=== PATIENT | female | born 1980 | race Caucasian/White ===

== ENCOUNTER 2018-10-10 22:52 | Emergency (ER) | payer MEDICAID, OTHER ==
[~2018-10-10] VITALS: Ht 170.2 cm; Wt 73.7 kg
[2018-10-10 22:57] VITALS: Ht 170.2 cm; Wt 73.7 kg
[2018-10-10] MEDS ORDERED: ONDANSETRON 4 MG INJ IV STA (23:16)
[2018-10-10] MEDS ORDERED: SOD CHLORIDE 0.9% 1,000 ML IV STA (23:16)
[2018-10-10] MEDS ORDERED: morphine 4 MG/ML VIAL IV STA (23:16)
[2018-10-11] MEDS ORDERED: CEPH-443 PO (02:12)
[2018-10-11] MEDS ORDERED: TRAM50TA2 PO (02:12)
--- NOTE | 2018-10-11 02:13 | ERD ---
ER Documentation Chief Complaint Chief Complaint upper AP radiating to R flank and back X 5 hrs HPI This is a 38-year-old female with upper abdominal pain rating to her flank and back for 5 hours. Pain is mild to moderate intensity associated nausea but no vomiting. No fevers or chills. No other current complaints. Patient has had some mild urgency and frequency of urination. Does have history of gallstones with states that this pain feels different than her gallstone pain. Normal bowel movements. No trauma. ROS All systems reviewed and are negative except as per history of present illness. Medications Home Meds Active Scripts Tramadol HCl (Tramadol HCl) 50 Mg Tablet, 50 MG PO Q4 PRN for PAIN, #20 TAB Prov:CHUCK DOSS Devin. 10/11/18 Cephalexin* (Keflex*) 500 Mg Capsule, 500 MG PO QID for 5 Days, CAP Prov:CHUCK DOSS S. 10/11/18 PMhx/Soc Medical and Surgical Hx: pt denies Surgical Hx History of Surgery: No Hx Neurological Disorder: No Hx Respiratory Disorders: No Hx Psychiatric Problems: No Hx Miscellaneous Medical Probl: Yes (gallstones) Hx Alcohol Use: No Hx Substance Use: No Hx Tobacco Use: No Smoking Status: Never smoker Physical Exam Vitals Vital Signs Date Temp Pulse Resp B/P (MAP) Pulse Ox O2 O2 Flow FiO2 Time Delivery Rate 10/10/18 98.0 16 143/86 100 Room Air 23:23 (105) 10/10/18 97.8 84 18 162/85 100 22:57 (110) Physical Exam Const: No acute distress Head: Atraumatic Eyes: Normal Conjunctiva ENT: Normal External Ears, Nose and Mouth. Neck: Full range of motion. No meningismus. Resp: Clear to auscultation bilaterally Cardio: Regular rate and rhythm, no murmurs Abd: Soft, non tender, non distended. Normal bowel sounds Skin: No petechiae or rashes Back: No midline or flank tenderness Ext: No cyanosis, or edema Neur: Awake and alert Psych: Normal Mood and Affect Result Diagram: 10/10/188 10/10/182328 Results 24 hrs Laboratory Tests Test 10/10/18 23:29 10/10/18 23:50 10/10/18 23:54 White Blood Count 8.4 10^3/ul Red Blood Count 4.58 10^6/ul Hemoglobin 13.2 g/dl Hematocrit 40.3 % Mean Corpuscular Volume 88.0 fl Mean Corpuscular Hemoglobin 28.8 pg Mean Corpuscular 32.8 g/dl Hemoglobin Concent Red Cell Distribution Width 12.2 % Platelet Count 224 10^3/UL Mean Platelet Volume 11.5 fl Immature Granulocytes % 0.400 % Neutrophils % 63.2 % Lymphocytes % 27.6 % Monocytes % 5.0 % Eosinophils % 3.4 % Basophils % 0.4 % Nucleated Red Blood Cells % 0.0 /100WBC Immature Granulocytes # 0.030 10^3/ul Neutrophils # 5.3 10^3/ul Lymphocytes # 2.3 10^3/ul Monocytes # 0.4 10^3/ul Eosinophils # 0.3 10^3/ul Basophils # 0.0 10^3/ul Nucleated Red Blood Cells # 0.0 10^3/ul Sodium Level 140 mmol/L Potassium Level 3.9 mmol/L Chloride Level 105 mmol/L Carbon Dioxide Level 23 mmol/L Anion Gap 12 Blood Urea Nitrogen 12 mg/dl Creatinine 0.75 mg/dl Est Glomerular Filtrat > 60 mL/min Rate mL/min Glucose Level 118 mg/dl Calcium Level 9.2 mg/dl Total Bilirubin 0.1 mg/dl Direct Bilirubin 0.00 mg/dl Indirect Bilirubin 0.1 mg/dl Aspartate Amino Transf (AST/SGOT) 23 IU/L Alanine 16 IU/L Aminotransferase (ALT/SGPT) Alkaline Phosphatase 88 IU/L Total Protein 8.5 g/dl Albumin 4.6 g/dl Globulin 3.90 g/dl Albumin/Globulin Ratio 1.17 Lipase 112 U/L Urine Color YELLOW Urine Clarity CLOUDY Urine pH 5.0 Urine Specific Tyler 1.026 Urine Ketones TRACE mg/dL Urine Nitrite NEGATIVE mg/dL Urine Bilirubin NEGATIVE mg/dL Urine Urobilinogen NEGATIVE mg/dL Urine Leukocyte Esterase TRACE Alivia/ul Urine Microscopic RBC > 182 /HPF Urine Microscopic WBC 26 /HPF Urine Mucus MANY /HPF Urine Hemoglobin 3+ mg/dL Urine Glucose NEGATIVE mg/dL Urine Total Protein 1+ mg/dl POC Beta HCG, Qualitative NEGATIVE Current Medications Medications Dose Sig/Shelly Start Time Status Last (Trade) Ordered Route PRN Stop Time Admin Dose Reason Admin Sodium 1,000 ml @ Q1H STAT 10/10/18 DC 10/10/18 Chloride 1,000 mls/hr IV 23:16 10/11/18 23:25 00:15 Morphine 4 mg ONCE STAT 10/10/18 DC 10/10/18 Sulfate IV 23:16 10/10/18 23:35 (morphine) 23:17 Ondansetron 4 mg ONCE STAT 10/10/18 DC 10/10/18 HCl (Zofran IV 23:16 10/10/18 23:35 Inj) 23:17 Procedures/MDM Medical decision making: Patient's gastrointestinal symptoms have stabilized while in the department. No evidence of severe dehydration, sepsis, or surgical abdomen. Extensive discussion with family and patient that occult disease cannot be ruled out. 8 hour recheck for repeat abdominal exam is planned. Patient does have evidence of UTI and possibly is already passed a kidney stone given the amount of blood in her urine. At this point she is clinically stable with no evidence of surgical abdomen on serial abdominal exams. Patient will be discharged home with Keflex and tramadol and asked to follow-up in 8 hours for serial abdominal exams to which he agrees. Departure Diagnosis: Primary Impression: Abdominal pain Abdominal location: unspecified location Qualified Codes: R10.9 - Unspecified abdominal pain Condition: Stable Patient Instructions: Abdominal Pain, Understanding Urinary Tract Infections (UTIs) CHUCK DOSS Oct 11, 2018 02:13
[2018-10-11] MEDS ORDERED: CEFTRIAXONE 1 GM/50 ML (PMX) 50 ML IVPB ONE (02:30)
[2018-10-11] MEDS ORDERED: CEFTRIAXONE 1 GM INJ IM SCH (02:31)
[2018-10-11 02:45] VITALS: BP 140/84; PULSE 78; RESP 16
== END 2018-10-11 02:48 | disposition home or self-care (01) ==
LOC: E/R 22:52
DX: R10.10 Upper abdominal pain, unspecified (principal); R11.0 Nausea
CPT/HCPCS: 36415; 74176; 80053; 81001; 81025; 83690; 85025; 96361; 96372; 96374; 96375; J0696; J2270; J2405; J7030; Z7502

== ENCOUNTER 2019-02-14 17:58 | Emergency (ER) | payer OTHER ==
[~2019-02-14] VITALS: Ht 160 cm; Wt 72.0 kg
[~2019-02-14 17:58] MED LIST: CEPH-443 PO; TRAM50TA2 PO
[2019-02-14 18:02] VITALS: Ht 160 cm; Wt 72.0 kg
[2019-02-14] MEDS ORDERED: SOD CHLORIDE 0.9% 1,000 ML IV STA (19:30)
[2019-02-14] MEDS ORDERED: KETOROLAC 15 MG INJ IV STA (19:30)
[2019-02-14] MEDS ORDERED: ONDANSETRON 4 MG INJ IV STA (19:30)
[2019-02-14] MEDS ORDERED: POLY17PO6 PO (21:35)
[2019-02-14 22:56] VITALS: BP 111/73; PULSE 58; RESP 18
--- NOTE | 2019-02-15 01:28 | ERD ---
ER Documentation Chief Complaint Chief Complaint rt upper quadrant pain w/night sweats, nausea vomtting x3 days HPI 38-year-old female presented to the emergency department complaining of right upper quadrant and right lower quadrant pain for the past 3 days. Pain is rated 8/10 in severity and constant. She has history of similar symptoms in the past. She does endorse history of gallstones in the past and states the symptoms are similar. She had 2 episodes of nonbilious and nonbloody vomiting today. She denies any fevers or other symptoms currently. ROS All systems reviewed and are negative except as per history of present illness. Medications Home Meds Active Scripts Polyethylene Glycol* (Miralax*) 17 Gm Powd.pack, 17 GM PO DAILY, #7 Prov:CHUCK SANTOS PA-C 02/14/19 Tramadol HCl (Tramadol HCl) 50 Mg Tablet, 50 MG PO Q4 PRN for PAIN, #20 TAB Prov:CHUCK DOSS 10/11/18 Cephalexin* (Keflex*) 500 Mg Capsule, 500 MG PO QID for 5 Days, CAP Prov:CHUCK DOSS 10/11/18 Allergies Allergies: Coded Allergies: shellfish derived (Verified Allergy, Unknown, 10/11/18) PMhx/Soc Medical and Surgical Hx: pt denies Medical Hx, pt denies Surgical Hx History of Surgery: No Hx Neurological Disorder: No Hx Respiratory Disorders: No Hx Psychiatric Problems: No Hx Miscellaneous Medical Probl: Yes (gallstones) Hx Alcohol Use: No Hx Substance Use: No Hx Tobacco Use: No Smoking Status: Never smoker FmHx Family History: No diabetes Physical Exam Vitals Vital Signs Date Temp Pulse Resp B/P (MAP) Pulse Ox O2 O2 Flow FiO2 Time Delivery Rate 02/14/19 97.6 58 18 111/73 100 22:56 (86) 02/14/19 98.5 89 18 125/83 100 18:02 (97) Physical Exam Const: No acute distress Head: Atraumatic Eyes: Normal Conjunctiva ENT: Normal External Ears, Nose and Mouth. Neck: Full range of motion. No meningismus. Resp: Clear to auscultation bilaterally Cardio: Regular rate and rhythm, no murmurs Abd: Soft, mild tenderness in the right upper quadrant and right lower quadrant. No rebound tenderness or guarding, negative Cabrera sign, non dis tended. Normal bowel sounds Skin: No petechiae or rashes Back: No midline or flank tenderness Ext: No cyanosis, or edema Neur: Awake and alert Psych: Normal Mood and Affect Result Diagram: 02/14/19193302/14/191933 Results 24 hrs Laboratory Tests Test 02/14/19 18:42 02/14/19 18:44 02/14/19 19:34 POC Beta HCG, Qualitative NEGATIVE Bedside Urine pH (LAB) 6.0 Bedside Urine Protein (LAB) Negative Bedside Urine Glucose (UA) Negative Bedside Urine Ketones (LAB) Negative Bedside Urine Blood 3+ Bedside Urine Nitrite (LAB) Negative Bedside Urine Leukocyte Esterase (L Negative White Blood Count 7.6 10^3/ul Red Blood Count 4.48 10^6/ul Hemoglobin 13.1 g/dl Hematocrit 39.3 % Mean Corpuscular Volume 87.7 fl Mean Corpuscular Hemoglobin 29.2 pg Mean Corpuscular Hemoglobin Concent 33.3 g/dl Red Cell Distribution Width 12.2 % Platelet Count 214 10^3/UL Mean Platelet Volume 11.2 fl Immature Granulocytes % 0.300 % Neutrophils % 62.7 % Lymphocytes % 25.4 % Monocytes % 6.3 % Eosinophils % 4.9 % Basophils % 0.4 % Nucleated Red Blood Cells % 0.0 /100WBC Immature Granulocytes # 0.020 10^3/ul Neutrophils # 4.8 10^3/ul Lymphocytes # 1.9 10^3/ul Monocytes # 0.5 10^3/ul Eosinophils # 0.4 10^3/ul Basophils # 0.0 10^3/ul Nucleated Red Blood Cells # 0.0 10^3/ul Prothrombin Time 12.1 Sec Prothrombin Time Ratio 0.9 INR International Normalized Ratio 0.89 Activated Partial Thromboplast Time 31.2 Sec Urine Color STRAW Urine Clarity CLEAR Urine pH 6.0 Urine Specific [place] 1.002 Urine Ketones NEGATIVE mg/dL Urine Nitrite NEGATIVE mg/dL Urine Bilirubin NEGATIVE mg/dL Urine Urobilinogen NEGATIVE mg/dL Urine Leukocyte Esterase NEGATIVE Alivia/ul Urine Microscopic RBC 3 /HPF Urine Microscopic WBC 2 /HPF Urine Bacteria FEW /HPF Urine Hemoglobin 3+ mg/dL Urine Glucose NEGATIVE mg/dL Urine Total Protein NEGATIVE mg/dl Sodium Level 143 mmol/L Potassium Level 3.9 mmol/L Chloride Level 108 mmol/L Carbon Dioxide Level 26 mmol/L Anion Gap 9 Blood Urea Nitrogen 10 mg/dl Creatinine 0.81 mg/dl Est Glomerular Filtrat Rate mL/min > 60 mL/min Glucose Level 94 mg/dl Calcium Level 9.7 mg/dl Total Bilirubin 0.4 mg/dl Direct Bilirubin 0.00 mg/dl Indirect Bilirubin 0.4 mg/dl Aspartate Amino Transf (AST/SGOT) 22 IU/L Alanine Aminotransferase (ALT/SGPT) 24 IU/L Alkaline Phosphatase 77 IU/L Total Protein 8.7 g/dl Albumin 4.7 g/dl Globulin 4.00 g/dl Albumin/Globulin Ratio 1.17 Lipase 108 U/L Current Medications Medications Dose Sig/Shelly Start Time Status Last (Trade) Ordered Route PRN Stop Time Admin Dose Reason Admin Sodium 1,000 ml @ Q1H STAT 02/14/19 DC 02/14/19 Chloride 1,000 mls/hr IV 19:30 02/14/19 20:25 20:29 Ondansetron 4 mg ONCE STAT 02/14/19 DC HCl (Zofran IV 19:30 02/14/19 Inj) 19:32 Ketorolac 15 mg ONCE STAT 02/14/19 DC Tromethamine IV 19:30 02/14/19 (Toradol) 19:32 [place] [id number] Radiology Main Line: [phone] DIAGNOSTIC IMAGING REPORT Patient: CRYSTAL HUGO : 1980 Age: 38 Sex: F [id number] [id number] DOS: 02/14/19 193 Ordering MD: CHUCK SANTOS PA-C Location: [facility] Room/Bed: PROCEDURE: CT Abdomen and Pelvis without contrast CLINICAL INDICATION: Abdominal pain TECHNIQUE: Transaxial images were obtained through the abdomen and pelvis on a multi-slice scanner without the intravenous contrast administration. No oral contrast had previously been given. Sagittal and coronal re-formations were subsequently reconstructed. One or more of the following dose reduction techniques were used: - Automated exposure control. - Adjustment of the mA and/or kV according to patient size. - Use of iterative reconstruction technique. DICOM images are available. Radiation dose: CTDIvol = 8.46 mGy; DLP = 503.80 mGy-cm. COMPARISON: 10/11/2018 FINDINGS: Lung bases: The visualized lung bases appear unremarkable. Liver: Normal in size and in attenuation. There is no focal lesion. Gallbladder: There is again cholelithiasis. The gallbladder wall does not appear thickened. Bile ducts: The intra and extrahepatic bile ducts are normal in caliber. Pancreas: Appears normal with no mass or inflammation evident. Spleen: Normal in size with no focal lesion. Adrenals: Normal with no mass identified. Kidneys, ureters and bladder: The kidneys are normal in size and there is no mass, pathological calcification, or hydronephrosis evident. There is no perinephric stranding. The ureters are normal in caliber and no ureteroliths are identified. The bladder appears unremarkable. Reproductive organs: Unremarkable. Stomach and bowel: The stomach appears unremarkable. There is a moderate stool burden within the right colon but there is no evidence of bowel obstruction or inflammation. Appendix: A normal-appearing vermiform appendix is evident. Peritoneum: No free intraperitoneal fluid or air is identified. A 7 mm calcification is seen within the intraperitoneal fat to the left of the bladder which may represent a calcified node. Aorta: Normal in caliber with no aneurysmal dilatation. IVC: Unremarkable. Lymph nodes: No pathologically enlarged nodes are identified. Osseous structures: The osseous elements appear intact. IMPRESSION: 1. When compared to the previous CT of 10/11/2018, there is again cholelithiasis but the gallbladder wall is not thickened, no bile duct dilatation is evident and the pancreas appears unremarkable. 2. There is again a moderate stool burden within the right colon but there is no evidence of bowel obstruction or inflammation. A normal vermiform appendix is again evident. 3. The kidneys, ureters and bladder again appear unremarkable. 4. A 7 mm calcification is again seen to the left of the bladder possibly a calcified node. There is no free intraperitoneal fluid or air. 5. Otherwise, stable and unremarkable non-enhanced CT scan of the abdomen and pelvis. Physician Asif Date Time Electronically viewed and signed by Physician Asif on 02/14/2019 21:28 RH/ CC: CHUCK SANTOS Erik DON [id number] Procedures/MDM 38-year-old female presenting with complaints of right upper quadrant and right lower quadrant pain as well as vomiting. CT abdomen and pelvis without contrast revealed cholelithiasis without gallbladder wall thickening as well as findings consistent with constipation. The full report interpreted by the radiologist may be viewed above. Patient was administered IV fluids and was improved on reevaluation. She declined pain medication. CBC: no e/o of systemic infection or severe anemia CMP: no e/o severe acidosis, alkalosis, renal failure, diabetic ketoacidosis, liver disease Lipase: no e/o pancreatitis PT/INR: normal coagulation Urine: no e/o acute infection or hematuria Medical decision making: Patient symptoms likely secondary to constipation and biliary colic. No evidence of cholecystitis on CT scan. Patient is nontoxic and well-appearing and afebrile. She stable and appropriate for discharge and further outpatient management. Patient's gastrointestinal symptoms have stabilized while in the department. No evidence of severe dehydration, sepsis, or surgical abdomen. Extensive discussion with family and patient that occult disease cannot be ruled out. 8 hour recheck for repeat abdominal exam is planned. No evidence of life-threatening pathology at time of discharge. Pt/family in agreement with discharge plan/diagnosis. Pt/family advised to return immediately with any new or worsening symptoms. Follow-up with primary care physician within the next 1-2 days. Disclaimer: Inadvertent spelling and grammatical errors are likely due to EHR/dictation software use and do not reflect on the overall quality of patient care. Also, please note that the electronic time recorded on this note does not necessarily reflect the actual time of the patient encounter. Departure Diagnosis: Primary Impression: Abdominal pain Additional Impression: Constipation Condition: Fair Patient Instructions: Abdominal Pain, Constipation (Adult) Referrals: [facility] YOU HAVE RECEIVED A MEDICAL SCREENING EXAM AND THE RESULTS INDICATE THAT YOU DO NOT HAVE A CONDITION THAT REQUIRES URGENT TREATMENT IN THE EMERGENCY DEPARTMENT. FURTHER EVALUATION AND TREATMENT OF YOUR CONDITION CAN WAIT UNTIL YOU ARE SEEN IN YOUR DOCTORS OFFICE WITHIN THE NEXT 1-2 DAYS. IT IS YOUR RESPONSIBILITY TO MAKE AN APPOINTMENT FOR FOLOW-UP CARE. IF YOU HAVE A PRIMARY DOCTOR --you should call your primary doctor and schedule an appointment IF YOU DO NOT HAVE A PRIMARY DOCTOR YOU CAN CALL OUR PHYSICIAN REFERRAL HOTLINE AT IF YOU CAN NOT AFFORD TO SEE A PHYSICIAN YOU CAN CHOSE FROM THE FOLLOWING [facility] [address] [facility] [address] [facility] [address] [facility] [address] [facility] [address] [facility]. [address] Additional Instructions: Call your primary care doctor TOMORROW for an appointment during the next 1-2 days.See the doctor sooner or return here if your condition worsens before your appointment time. CHUCK SANTOS PA-C Feb 15, 2019 01:28
== END 2019-02-14 22:57 | disposition home or self-care (01) ==
LOC: FTE 17:58
DX: K59.00 Constipation, unspecified (principal)
CPT/HCPCS: 36415; 74176; 80053; 81001; 81025; 83690; 85025; 85610; 85730; J7030; Z7502; 81003